=== PATIENT | male | born 1965 | race Caucasian/White ===

== ENCOUNTER 2017-06-07 17:20 | Emergency (ER) | payer OTHER ==
[2017-06-07] MEDS ORDERED: Ketorolac Tromethamine 30 MG/ML VIAL ONE (17:48)
--- NOTE | 2017-06-07 18:46 | CT ---
CT LUMBAR SPINE 06/07/17 PROVIDED CLINICAL HISTORY: Back pain status post injury. FINDINGS: Lumbar alignment appears normal. Vertebral body heights appear preserved. No evidence for fracture. D isc and facet degenerative changes are seen involving the lower lumbar spine. Broad based disc bulge at L4-5 produces mild central canal stenosis. There is mild bilateral foraminal narrowing at L5-S1 an d mild to moderate bilateral foraminal narrowing at L4-5. There are prominent by number and occasionally enlarged lymph nodes seen within the retroperitoneum, incompletely characterized on the basis of this study. IMPRESSION: 1. No evidence for an acute osseous abnormality. Degenerative changes as above. 2. Retroperitoneal lymph node enlargement. Correlation with dedicated nonemergent CT of the abdo men and pelvis with IV contrast and oral contrast is recommended. POS: MANJIT
[2017-06-07] MEDS ORDERED: HYDROcodone/Acetaminophen 10/325 mg Tablet ONE (19:10)
[2017-06-07] MEDS ORDERED: predniSONE 20 MG TAB ONE (19:10)
== END 2017-06-07 19:16 | disposition home or self-care (01) ==
LOC: BURERS 17:20
DX: S39.92XA Unspecified injury of lower back, initial encounter (principal); R59.0 Localized enlarged lymph nodes; F17.220 Nicotine dependence, chewing tobacco, uncomplicated; W19.XXXA Unspecified fall, initial encounter; X58.XXXA Exposure to other specified factors, initial encounter; Y92.69 Other specified industrial and construction area as the place of occurrence of the external cause; Y99.0 Civilian activity done for income or pay; G89.29 Other chronic pain
CPT/HCPCS: 72131; 96372; J1885; J2270; J7506

== ENCOUNTER 2017-08-06 17:41 | Emergency (ER) | payer OTHER ==
[2017-08-06] MEDS ORDERED: Bupivacaine 0.5% 10 ML VIAL ONE (17:58)
[2017-08-06] MEDS ORDERED: Acetaminophen/Codeine 30-300mg Tablet ONE (17:59)
== END 2017-08-06 18:15 | disposition home or self-care (01) ==
LOC: BURERS 17:41
DX: M62.838 Other muscle spasm (principal); G89.29 Other chronic pain; M54.9 Dorsalgia, unspecified; F17.220 Nicotine dependence, chewing tobacco, uncomplicated
CPT/HCPCS: 99283; J3490

== ENCOUNTER 2021-06-07 20:54 | Emergency (ER) | payer BC, SELFPAY ==
[2021-06-07] MEDS ORDERED: Morphine 4 MG/ML VIAL ONE (21:25)
[2021-06-07] MEDS ORDERED: Ketorolac Tromethamine 30 MG/ML VIAL ONE (21:26)
[2021-06-07] MEDS ORDERED: predniSONE 20 MG TAB ONE (21:26)
== END 2021-06-07 22:36 | disposition home or self-care (01) ==
LOC: BURERS 20:54
DX: M54.50 Low back pain, unspecified (principal); F17.220 Nicotine dependence, chewing tobacco, uncomplicated
CPT/HCPCS: 96372; 99283; J1885; J2270; J7512